=== PATIENT | male | born 1975 | race Caucasian/White ===

== ENCOUNTER 2025-02-12 13:53 | Emergency (ER) | payer OTHER ==
[2025-02-12 13:58] VITALS: RESP 18
--- NOTE | 2025-02-12 13:59 | ED ---
Upper Extremity HPI - General Source: patient Mode of arrival: ambulatory Limitations: no limitations <Diana Bundy - Last Filed: 02/12/25 13:59> <Pelon Balderas - Last Filed: 02/12/25 15:53> - General Stated Complaint: left finger amputation Time Seen by Provider: 02/12/25 13:59 - History of Present Illness Initial Comments: Quick note: 49-year-old male presented the ER for evaluation of left hand injury. Patient was using a table saw when it accidentally kicked back cutting his 3rd through 5th digits. Patient reports wounds to 3rd through 5th digits. Tetanus status unknown. (Diana Bundy) Dictation was produced using [employer] dictation software. please excuse any grammatical, word or spelling errors. 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 He was cutting with a table saw and his hand slipped and he cut his distal tip of his left 2nd through 4th digit. The ROS documented in this emergency department record has been reviewed and con firmed by me. Those systems with pertinent positive or negative responses have been documented in the HPI. All other systems are other negative and/or noncontributory. (Pelon Balderas) - Related Data Previous Rx's Medication Instructions Recorded Cephalexin [Keflex] 500 mg PO Q6HR 5 Days #20 cap 02/12/25 HYDROcodone/APAP 5-325MG [[place] 1 tab PO Q6HR PRN 3 Days #12 tab 02/12/25 5-325] Allergies Allergy/AdvReac Type Severity Reaction Status Date / Time No Known Allergies Allergy Verified 02/12/25 13:58 Review of Systems ROS Other: All systems not noted in ROS Statement are negative. <Diana Bundy - Last Filed: 02/12/25 13:59> ROS Other: All systems not noted in ROS Statement are negative. <Pelon Balderas - Last Filed: 02/12/25 15:53> ROS Statement: Those systems with pertinent positive or pertinent negative responses have been documented in the HPI. Past Medical History Past Medical History: No Reported History History of Any Multi-Drug Resistant Organisms: None Reported Additional Past Surgical History / Comment(s): left eye surgery Past Psychological History: Depression Smoking Status: Current every day smoker Past Alcohol Use History: None Reported Past Drug Use History: Marijuana <Diana Bundy - Last Filed: 02/12/25 13:59> General Exam Limitations: no limitations <Diana Bundy - Last Filed: 02/12/25 13:59> <Pelon Balderas - Last Filed: 02/12/25 15:53> - General Exam Comments Initial Comments: Visual Physical Exam Vital signs reviewed General: Well-appearing, nontoxic, no acute distress. Head: Normocephalic, atraumatic Eyes: PERRLA, EOMI ENT: Airway patent Chest: Nonlabored breathing Skin: No visual rash, normal skin tone Neuro: Alert and oriented 3 Musculoskeletal: No gross abnormalities, wounds to 3rd through 5th left digits (Diana Bundy) General: Well-appearing, nontoxic, no acute distress. Head: Normocephalic, atraumatic Eyes: PERRLA, EOMI ENT: Airway patent Chest: Nonlabored breathing Skin: No visual rash, normal skin tone Neuro: Alert and oriented 3 Musculoskeletal: No gross abnormalities Left hand: Laceration to the distal tips. Most severe at the left 3rd and 2nd digit. Small laceration involving the distal nail of the fourth digit (Pelon Balderas) Course Vital Signs 02/12/25 13:55 Temperature 98.2 F Pulse Rate 134 H Respiratory 18 Rate Blood Pressure 162/107 O2 Sat by Pulse 98 Oximetry Medical Decision Making <Diana Bundy - Last Filed: 02/12/25 13:59> - Lab Data Result diagrams: 02/12/25 14:19 02/12/25 14:19 <Pelon Balderas - Last Filed: 02/12/25 15:53> - Medical Decision Making I performed the quick note portion of this chart. Electronically signed by Diana Bundy PA-C (Diana Bundy) Was pt. sent in by a medical professional or institution (DIAZ Perez, COATING [employer] WORK[employer], urgent care, hospital, or [place] health care facility...) When possible be specific @ -No Did you speak to anyone other than the patient for history (EMS, parent, family, police, friend...)? What history was obtained from this source @ -No Did you review nursing and triage notes (agree or disagree)? Why? @ -I reviewed and agree with nursing and triage notes Were old charts reviewed (outside hosp., previous admission, EMS record, old EKG, old radiological studies, urgent care reports/EKG's, [place] health [facility] facility records)? Report findings @ -No old charts were reviewed Differential Diagnosis (chest pain, altered mental status, abdominal pain women, abdominal pain men, vaginal bleeding, musculoskeletal, weakness, fever, dyspnea, syncope, headache, dizziness, GI bleed, back pain, seizure, CVA, palpatations, mental health)? @ -Finger laceration, finger amputation, open fracture EKG interpreted by me (3pts min.). @ -None done X-rays interpreted by me (1pt min.). @ -X-ray shows partial amputations of the 2nd and 4th digit. CT interpreted by me (1pt min.). @ -None done U/S interpreted by me (1pt. min.). @ -None done What testing was considered but not performed or refused? (CT, X-rays, U/S, labs)? Why? @ -None What meds were considered but not given or refused? Why? @ -None Was smoking cessation discussed for >3mins.? @ -No Were there social determinants of health that impacted care today? How? (Homelessness, low income, unemployed, alcoholism, drug addiction, transportation, low edu. Level, literacy, decrease access to med. care, fci, rehab)? @ -No Was there de-escalation of care discussed even if they declined (Discuss DNR or withdrawal of care, Hospice)? DNR status @ -No What co-morbidities impacted this encounter? (DM, HTN, Smoking, COPD, CAD, Cancer, CVA, ARF, Chemo, Hep., AIDS, mental health diagnosis, sleep apnea, morbid obesity)? @ -None Was patient admitted / discharged? Hospital course, mention meds given and route, prescriptions, significant lab abnormalities, going to OR and other pe rtinent info. @ -49-year-old male presents to the emergency department with tablesaw injury to his left 2nd and 4th digit. Signs stable. Patient tetanus updated. Laceration on the fourth digit was repaired. Patient had gaping wound to the 2nd and 3rd digit. Wound was dressed with Gelfoam. Please see procedure note above. Patient given outpatient referral to hand surgeon. Require amputation revision. Did you discuss the management of the patient with other professionals (professionals i.e. , PA, COATING LINE WORKER, lab, RT, psych nurse, foster care social worker, profile saw operator, teacher, environmental compliance officer, case checker)? Give summary @ -No Was critical care preformed (if so, how long)? @ -No Undiagnosed new problem with uncertain prognosis? @ -No Drug Therapy requiring intensive monitoring for toxicity (Heparin, Nitro, Insulin, Cardizem)? @ -No Were any procedures done? @ -Above Diagnosis/symptom? Acute, or Chronic, or Acute on Chronic? Uncomplicated (without systemic symptoms) or Complicated (systemic symptoms)? @ -Accidental finger amputation Side effects of treatment? @ -No Exacerbation, Progression, or Severe Exacerbation? @ -No Poses a threat to life or bodily function? How? (Chest pain, [place], CA, pneumonia, PE, COPD, DKA, ARF, appy, cholecystitis, CVA, Diverticulitis, Homicidal, Suicidal, threat to staff... and all critical care pts) @ -yes (Pelon Balderas) - Lab Data Lab Results 02/12/25 02/12/25 Range/Units 14:19 14:19 WBC 15.28 H (4.50-10.00) 10*3/uL RBC 5.25 (4.40-5.60) 10*6/uL Hgb 17.0 (13.0-17.0) g/dL Hct 47.4 (39.6-50.0) % MCV 90.3 (80.0-97.0) fL MCH 32.4 H (27.0-32.0) pg MCHC 35.9 (32.0-37.0) g/dL Plt Count 250 (140-440) 10*3/uL MPV 9.7 (9.5-12.2) fL Immature Gran % (Auto) 0.4 % Neutrophils % 51.5 % Lymphocytes % 38.9 % Monocytes % 6.7 % Eosinophils % 1.8 % Basophils % 0.7 % Immature Gran # 0.06 H (0.00-0.04) 10*3/uL Neutrophils # 7.87 H (1.80-7.70) 10*3/uL Lymphocytes # 5.95 H (0.90-5.00) 10*3/uL Monocytes # 1.03 H (0.20-1.00) 10*3/uL Eosinophils # 0.27 (0.04-0.35) 10*3/uL Basophils # 0.10 (0.00-0.10) 10*3/uL Manual Slide Review Performed Sodium 138 (137-145) mmol/L Potassium 4.0 (3.5-5.1) mmol/L Chloride 104 (98-107) mmol/L Carbon Dioxide 20 L (22-30) mmol/L Anion Gap 14 mmol/L BUN 17 (9-20) mg/dL Creatinine 1.20 (0.66-1.25) mg/dL Est GFR (CKD-EPI)AfAm 81 (>60 ml/min/1.73 sqM) Est GFR (CKD-EPI)NonAf 70 (>60 ml/min/1.73 sqM) Glucose 108 H (74-99) mg/dL Calcium 9.7 (8.4-10.2) mg/dL Disposition <Diana Bundy - Last Filed: 02/12/25 13:59> Is patient prescribed a controlled substance at d/c from ED?: Yes If prescribed controlled substance>3 days was MAPS reviewed?: Prescribed <3 Days Time of Disposition: 15:53 <Pelon Balderas - Last Filed: 02/12/25 15:53> Clinical Impression: Finger laceration Disposition: HOME SELF-CARE Condition: Fair Instructions (If sedation given, give patient instructions): Finger Amputation (ED) Prescriptions: Cephalexin [Keflex] 500 mg PO Q6HR 5 Days #20 cap HYDROcodone/APAP 5-325MG [[place] 5-325] 1 tab PO Q6HR PRN 3 Days #12 tab PRN Reason: Severe Pain Referrals: Tomas Forrester MD [STAFF PHYSICIAN] - 1-2 days
[2025-02-12] MEDS: HYDROmorphone 1 MG/ML 1 ML SYRINGE IVP STA (14:18)
[2025-02-12] MEDS: DIPH,PERTUS(ACELL)TETVAC-LF 0.5 ML VIAL IM ONE (14:19)
[2025-02-12] MEDS: LIDOCAINE 1%-EPI 1:100,000 20 ML VIAL SQ STA (14:19)
[2025-02-12 14:25] LABS: Basophils % (A) 0.7 %; Eosinophils # (A) 0.27 10*3/uL (0.04-0.35); Eosinophils % (A) 1.8 %; HCT 47.4 % (39.6-50.0); Lymphocytes # (A) 5.95 10*3/uL (0.90-5.00); Lymphocytes % (A) 38.9 %; MCH 32.4 pg (27.0-32.0); MCHC 35.9 g/dL (32.0-37.0); MCV 90.3 fL (80.0-97.0); Mean Platelet Volume 9.7 fL (9.5-12.2); Monocytes # (A) 1.03 10*3/uL (0.20-1.00); Monocytes % (A) 6.7 %; Neutrophils # (A) 7.87 10*3/uL (1.80-7.70); Neutrophils % (A) 51.5 %; Platelet Count 250 10*3/uL (140-440); RBC 5.25 10*6/uL (4.40-5.60); RDW 13.1 % (11.5-14.5); WBC 15.28 10*3/uL (4.50-10.00)
[2025-02-12] MEDS ORDERED: ONDANSETRON 4 MG/2 ML VIAL IVP STA (14:29)
--- NOTE | 2025-02-12 14:31 | XR ---
EXAMINATION TYPE: XR hand complete LT DATE OF EXAM: 02/12/2025 2:13 PM COMPARISON: None available. CLINICAL INDICATION: Male, 49 years old with history of 3-5 digit injury saw; PHH, pain TECHNIQUE: XR hand complete LT 2 views of the left hand were obtained. Study limited due to suboptima l positioning. FINDINGS: Soft tissue laceration defect involving the second, third and fourth digits. There is drama tic indication of the mid third digit distal phalanx with macerated appearance of the residual portio n of the phalanx. Comminuted/macerated fractures of the second digit distal phalanx. No definite acut e fracture of the fourth digit. IMPRESSION: Traumatic amputation of the third digit distal phalanx and comminuted/macerated appearance of the sec ond digit distal phalanx with associated soft tissue laceration defects. [facility], , 02/12/2025 2:29 PM
[2025-02-12 14:34] LABS: African American GFR (CKD) 81 (>60 ml/min/1.73 sqM); Anion Gap 14 mmol/L; Blood Urea Nitrogen 17 mg/dL (9-20); Calcium 9.7 mg/dL (8.4-10.2); Carbon Dioxide 20 mmol/L (22-30); Chloride 104 mmol/L (98-107); Glucose 108 mg/dL (74-99); Non-African American GFR(CKD) 70 (>60 ml/min/1.73 sqM); Sodium 138 mmol/L (137-145)
--- NOTE | 2025-02-12 15:59 | ED ---
Medical Decision Making - Lab Data Result diagrams: 02/12/25 14:19 02/12/25 14:19 Lab Results 02/12/25 02/12/25 Range/Units 14:19 14:19 WBC 15.28 H (4.50-10.00) 10*3/uL RBC 5.25 (4.40-5.60) 10*6/uL Hgb 17.0 (13.0-17.0) g/dL Hct 47.4 (39.6-50.0) % MCV 90.3 (80.0-97.0) fL MCH 32.4 H (27.0-32.0) pg MCHC 35.9 (32.0-37.0) g/dL Plt Count 250 (140-440) 10*3/uL MPV 9.7 (9.5-12.2) fL Immature Gran % (Auto) 0.4 % Neutrophils % 51.5 % Lymphocytes % 38.9 % Monocytes % 6.7 % Eosinophils % 1.8 % Basophils % 0.7 % Immature Gran # 0.06 H (0.00-0.04) 10*3/uL Neutrophils # 7.87 H (1.80-7.70) 10*3/uL Lymphocytes # 5.95 H (0.90-5.00) 10*3/uL Monocytes # 1.03 H (0.20-1.00) 10*3/uL Eosinophils # 0.27 (0.04-0.35) 10*3/uL Basophils # 0.10 (0.00-0.10) 10*3/uL Manual Slide Review Performed Sodium 138 (137-145) mmol/L Potassium 4.0 (3.5-5.1) mmol/L Chloride 104 (98-107) mmol/L Carbon Dioxide 20 L (22-30) mmol/L Anion Gap 14 mmol/L BUN 17 (9-20) mg/dL Creatinine 1.20 (0.66-1.25) mg/dL Est GFR (CKD-EPI)AfAm 81 (>60 ml/min/1.73 sqM) Est GFR (CKD-EPI)NonAf 70 (>60 ml/min/1.73 sqM) Glucose 108 H (74-99) mg/dL Calcium 9.7 (8.4-10.2) mg/dL Disposition Clinical Impression: Finger laceration Disposition: HOME SELF-CARE Condition: Fair Instructions (If sedation given, give patient instructions): Finger Amputation (ED) Prescriptions: Cephalexin [Keflex] 500 mg PO Q6HR 5 Days #20 cap HYDROcodone/APAP 5-325MG [[place] 5-325] 1 tab PO Q6HR PRN 3 Days #12 tab PRN Reason: Severe Pain Is patient prescribed a controlled substance at d/c from ED?: No Referrals: Tomas Forrester MD [STAFF PHYSICIAN] - 1-2 days Time of Disposition: 16:34 Procedures - Laceration Laceration #1 Consent Obtained: verbal consent Indication: laceration Site: hand (3rd digit) Size (cm): 1 Description: irregular Depth: simple, single layer Anesthetic Used: lidocaine 1%, with epi Anesthesia Technique: nerve block Amount (mls): 3 Pre-repair: wound explored, irrigated extensively Type of Sutures: nylon Size of Sutures: 4-0 Number of Sutures: 2 Technique: simple, interrupted Patient Tolerated Procedure: well Laceration #2 Consent Obtained: verbal consent Indication: laceration Site: hand Size (cm): 1 Description: flap Depth: [id number] Anesthetic Used: lidocaine 1%, with epi Anesthesia Technique: nerve block Amount (mls): 2 Pre-repair: wound explored, irrigated extensively Type of Sutures: nylon Size of Sutures: 4-0 Number of Sutures: 1 Technique: simple, interrupted Patient Tolerated Procedure: well - Orthopedic Splinting/Casting Injury #1 Side: left Upper Extremity Injury Location: finger Upper Extremity Immobilizer: finger (other) (protective spint wrapped around [place] and dorsal aspect of injured digits)
[2025-02-12] MEDS: ACET/COD 300 MG/30 MG STARTER PACK 6 TAB BTL PO STA (16:27)
[2025-02-12] MEDS: cefTRIAXone IN SWFI 1,000 MG/10 ML SYRINGE IVP STA (16:28)
[2025-02-12 16:36] VITALS: BP 125/87; PULSE 97; TEMP 98.6
== END 2025-02-12 16:35 | disposition home or self-care (01) ==
LOC: EC 13:53
DX: S61.215A Laceration without foreign body of left ring finger without damage to nail, initial encounter (principal); S61.211A Laceration without foreign body of left index finger without damage to nail, initial encounter; Z23 Encounter for immunization; F17.200 Nicotine dependence, unspecified, uncomplicated; W22.03XA Walked into furniture, initial encounter
CPT/HCPCS: 36415; 80048; 85025; 73130; 90715; 99283; 96374; 96375; 90471; 12001; J0696; J1171